=== PATIENT | female | born 1960 | race Caucasian/White ===

== ENCOUNTER 2021-08-27 13:08 | Emergency (ER) | payer SELFPAY ==
--- NOTE | 2021-08-27 13:22 | EDM.PDOC ---
"ED HPI GENERAL MEDICAL PROBLEM - General Chief Complaint: Respiratory Problem Stated Complaint: SHAQ BREATHE [id number] Time Seen by Provider: 08/27/21 13:22 Source of Information: Reports: Patient, RN, RN Notes Reviewed History Limitations: Reports: No Limitations - History of Present Illness INITIAL COMMENTS - FREE TEXT/NARRATIVE: Pt sent from clinic by PCP for evaluation of shortness of breath, chest pressure, and weight gain. Pt admits to cough with occasional sputum production. She recently had swelling in the ankles, but that has resolved. She has Hx of chronic A-fib, COPD and continues to smoke. Pt had a negative COVID swab in clinic today. Denies fever, leg/calf pain, orthopnea, or hemoptysis. Patient due for CT scan of right hip, she is scheduled for hip replacement on 09/16/21. Onset: Gradual Duration: Week(s): (1-2) Location: Reports: Chest, Generalized Quality: Reports: Pressure Severity: Mild Improves with: Reports: None Worsens with: Reports: None Associated Symptoms: Reports: No Other Symptoms right hip Pain Score (Numeric/FACES): 2 - Related Data Allergies Allergy/AdvReac Type Severity Reaction Status Date / Time grapefruit Allergy Hives Verified 08/27/21 14:54 Home Meds: Home Meds Acetaminophen [Tylenol Extra Strength] 1,000 mg PO Q6H PRN 08/27/21 [History] Albuterol [Proventil HFA] 2 puff INH Q6H PRN 08/27/21 [History] Apixaban [Eliquis] 5 mg PO BID 08/27/21 [History] Calcium Carbonate/Vitamin D3 [Calcium 1,000 + D3 Caplet] 3 each PO DAILY 08/27/21 [History] Fluticasone/Salmeterol [Advair 250-50] 1 puff INH BID 08/27/21 [History] Gabapentin [Neurontin] 100 mg PO BID 08/27/21 [History] Tiotropium [Spiriva] 18 mcg INH DAILY 08/27/21 [History] Past Medical History Cardiovascular History: Reports: Afib Respiratory History: Reports: COPD Social & Family History - Family History Family Medical History: No Pertinent Family History - Tobacco Use Tobacco Use Status *Q: Current Every Day Tobacco User Tobacco Use Within Last Twelve Months: Cigarettes Years of Tobacco use: 40 - Living Situation & Occupation Living situation: Reports: , Alone ED ROS GENERAL - Review of Systems Review Of Systems: Comprehensive ROS is negative, except as noted in HPI. ED EXAM, GENERAL - Physical Exam Exam: See Below Exam Limited By: No Limitations General Appearance: Alert, No Apparent Distress, Thin, Other (Chronically ill appearing) Eye Exam: Bilateral Eye: Normal Inspection Nose: Normal Inspection, No Blood Throat/Mouth: Normal Lips, Normal Voice, No Airway Compromise Head: Atraumatic, Normocephalic Neck: Normal Inspection Respiratory/Chest: No Respiratory Distress, No Accessory Muscle Use, Decreased Breath Sounds, Crackles, Wheezing (mild). No: Rales, Rhonchi Cardiovascular: No JVD, Tachycardia, Irregularly Irregular GI/Abdominal: Normal Bowel Sounds, Soft, Non-Tender Back Exam: Normal Inspection Extremities: Normal Inspection Neurological: Alert, Oriented, CN II-XII Intact, Normal Cognition, No Motor/Sensory Deficits Psychiatric: Normal Affect, Normal Mood Skin Exam: Warm, Dry, Intact, Normal Color, No Rash #1 Interpretation EKG Date: 08/27/21 Time: 14:32 Rhythm: A-Fib Rate (Beats/Min): 98 [place]: Normal P-Wave: Present QRS: Other (borderline low voltage, extremity leads. Anteroseptal infarct, age indeterminate.) ST-T: Normal QT: Normal Comparison: NA - No Prior EKG Course - Vital Signs Last Recorded V/S: Last Vital Signs Temp 99.1 F 08/27/21 13:49 Pulse 100 08/27/21 14:08 Resp 20 08/27/21 13:49 BP 125/85 08/27/21 13:49 Pulse Ox 93 L 08/27/21 14:08 - Orders/Labs/Meds Orders: Active Orders 24 hr Category Date Time Status CULTURE BLOOD [BC] Stat Lab 08/27/21 14:18 Received CULTURE BLOOD [BC] Stat Lab 08/27/21 14:30 Received Diltiazem 125 mg Med 08/27/21 14:15 Active Sodium Chloride 0.9% [Normal Saline] 100 ml IV TITRATE Sodium Chloride 0.9% [Saline Flush] Med 08/27/21 14:07 Active 10 ml FLUSH ASDIRECTED PRN Blood Culture x2 Reflex Set [OM.PC] Stat Oth 08/27/21 14:07 Ordered Peripheral IV Insertion Adult [OM.PC] Stat Oth 08/27/21 14:07 Ordered Medication Orders Diltiazem HCl 125 mg/ Sodium (Chloride) 125 mls @ 5 mls/hr IV TITRATE JAIDEN; Protocol Sodium Chloride (Sodium Chloride 0.9% 10 Ml Syringe) 10 ml FLUSH ASDIRECTED PRN PRN Reason: Keep Vein Open Last Admin: 08/27/21 14:56 Dose: 10 ml Documented by: MIKA Labs: Laboratory Tests 08/27/21 08/27/21 08/27/21 Range/Units 14:18 14:18 14:18 WBC 3.6 L (5.0-10.0) 10^3/uL RBC 4.76 (4.2-5.4) 10^6/uL Hgb 15.3 (12.0-16.0) g/dL Hct 43.9 (37.0-47.0) % MCV 92.2 (80-100) fL MCH 32.1 (27.0-34.0) pg MCHC 34.9 (33.0-35.0) g/dL Plt Count 139 L (150-450) 10^3/uL Neut % (Auto) 73.8 (42.2-75.2) % Lymph % (Auto) 19.5 L (20.5-50.1) % [place] % (Auto) 5.3 (2-8) % Eos % (Auto) 0.6 L (1.0-3.0) % Baso % (Auto) 0.8 (0.0-1.0) % Sodium 132 L (136-145) mmol/L Potassium 3.9 (3.5-5.1) mmol/L Chloride 92 L (98-107) mmol/L Carbon Dioxide 28 (21-32) mmol/L Anion Gap 15.9 H (7-13) mEq/L BUN 13 (7-18) mg/dL Creatinine 0.97 (0.55-1.02) mg/dL Est Cr Clr Drug Dosing 58.46 mL/min Estimated GFR (MDRD) 59 BUN/Creatinine Ratio 13.4 (No establ ref range) Glucose 149 H (70-99) mg/dL Lactic Acid 2.2 H* (0.4-2.0) mmol/L Calcium 9.2 (8.5-10.1) mg/dL Magnesium 2.1 (1.8-2.4) mg/dL Total Bilirubin 1.7 H (0.2-1.0) mg/dL AST 29 (15-37) U/L ALT 26 (14-59) U/L Alkaline Phosphatase 173 H (46-116) U/L Troponin I High Sens 11 (<=51) pg/mL B-Natriuretic Peptide 448 H (0-100) pg/ml Total Protein 7.8 (6.4-8.2) g/dL Albumin 3.9 (3.4-5.0) g/dL Globulin 3.9 Albumin/Globulin Ratio 1.0 TSH, Ultra Sensitive 1.52 (0.36-3.74) uIU/mL Meds: Medications Generic Name Dose Route Start Last Admin Trade Name Freq PRN Reason Stop Dose Admin Diltiazem HCl 125 mg/ Sodium 125 mls @ 5 mls/hr 08/27/21 14:15 Chloride IV TITRATE JAIDEN Protocol 5 MG/HR Sodium Chloride 10 ml 08/27/21 14:07 08/27/21 14:56 Sodium Chloride 0.9% 10 Ml Syringe FLUSH 10 ml ASDIRECTED PRN Administration Keep Vein Open Discontinued Medications Generic Name Dose Route Start Last Admin Trade Name Freq PRN Reason Stop Dose Admin Albuterol/Ipratropium 3 ml 08/27/21 14:08 08/27/21 14:47 Albuterol/Ipratropium 3.0-0.5 Mg/3 Ml Neb Soln NEB 08/27/21 14:09 3 ml ONETIME ONE Administration Diltiazem HCl 20 mg 08/27/21 14:08 08/27/21 14:56 Diltiazem 25 Mg/5 Ml Sdv IVPUSH 08/27/21 14:09 Not Given ONETIME ONE Methylprednisolone Sodium Succinate 125 mg 08/27/21 14:08 08/27/21 14:56 Methylprednisolone Sodium Succinate 125 Mg/2 Ml Sdv IVPUSH 08/27/21 14:09 125 mg ONETIME ONE Administration - Radiology Interpretation Free Text/Narrative:: [facility] Final Radiology Report Call: [phone] assistance Online chat: [email or web address] Name: BERTHA RUSSELL Age: 60Years F Date: 08/27/2021 SSN: -- : [id number] Study: CT CHEST WO CONT Requesting Physician: JASBIR WANG Images: [id number] Addl Studies: Provided Clinical History: COPD, dyspnea/cough, COVID neg., edema Contrast: Without Contrast Medium: Contrast Amount: Contrast Method: Page 1 of 2 PROCEDURE INFORMATION: Exam: CT Chest Without Contrast; Diagnostic Exam date and time: 08/27/2021 2:42 PM Age: 60 years old Clinical indication: Cough and dyspnea; Additional info: Copd, dyspnea/cough, covid neg. , Edema TECHNIQUE: Imaging protocol: Diagnostic computed tomography of the chest without contrast. Radiation optimization: All CT scans at this facility use at least one of these dose optimization techniques: automated exposure control; mA and/or kV adjustment per patient size (includes targeted exams where dose is matched to clinical indication); or iterative reconstruction. COMPARISON: No relevant prior exams. FINDINGS: Lungs: Mild emphysematous changes are present. Spotty areas of interstitial infiltrate in the anterior right upper lobe and posterior right lower lobe. Minimal stranding in the lateral right upper lobe. No other pulmonary infiltrate or consolidation. Subsolid 3 mm nodule in the posterolateral right lower lobe at 2-43. 4 mm nodule in the slightly more posterior right lower lobe at the same level. Pleural spaces: Unremarkable. No pneumothorax. No pleural effusion. Heart: Mild diffuse cardiac enlargement. Aorta: Unremarkable. No aortic aneurysm. Lymph nodes: Unremarkable. No enlarged lymph nodes. Bones/joints: Unremarkable. No acute fracture. Soft tissues: Unremarkable. Other findings: Fluid in the upper abdomen. IMPRESSION: BERTHA RUSSELL | Final Radiology Report CONFIDENTIALITY STATEMENT This report is intended only for use by the referring physician, and only in accordance with law. If you received this in error, call [phone]. Page 2 of 2 1. Small spotty areas of interstitial change may be acute or chronic. This may represent fibrosis related to the emphysema. An acute pneumonia is difficult to fully exclude. 2. Small subsolid nodules. Recommend CT Chest at 3-6 months. If stable, then consider CT Chest at 2 years and 4 years. (Reference: Denny) 3. Emphysema. REFERENCES: Denny Lopez, et al. Guidelines for Management of Incidental Pulmonary Nodules Detected on CT Images: From the Fleischner Society 2017. Radiology. 2017;284(1):228-243. Thank you for allowing us to participate in the care of your patient. Dictated and Authenticated by: Dante Mcclain MD 08/27/2021 3:05 PM Central Time ([place] & [place]) Departure - Departure Time of Disposition: 15:43 Disposition: Home, Self-Care 01 Condition: Fair Clinical Impression: Acute exacerbation of chronic obstructive pulmonary disease, Chronic atrial fibrillation with rapid ventricular response - Discharge Information *PRESCRIPTION DRUG MONITORING PROGRAM REVIEWED*: Not Applicable *COPY OF PRESCRIPTION DRUG MONITORING REPORT IN PATIENT JUANITA: Not Applicable Instructions: Chronic Obstructive Pulmonary Disease Exacerbation, Atrial Fibrillation Forms: ED Department Discharge Additional Instructions: Rx: Prednisone 20mg Rx: Levaquin 500mg Rx: Cardizem (Diltiazem) CD 120mg Continue your other medications and inhalers as prescribed. Quit smoking. Follow up in clinic with your primary doctor as scheduled. Have your doctor recheck your heart rate, and review the CT report from today's lung scan at your appointment. Sepsis Event Note (ED) - Focused Exam Vital Signs: Vital Signs Temp Pulse Resp BP Pulse Ox Pulse Ox 08/27/21 14:08 100 93 L 08/27/21 13:49 99.1 F 127 H 20 125/85 96 - My Orders Last 24 Hours: My Active Orders 08/27/21 14:07 Sodium Chloride 0.9% [Saline Flush] 10 ml FLUSH ASDIRECTED PRN Blood Culture x2 Reflex Set [OM.PC] Stat Peripheral IV Insertion Adult [OM.PC] Stat 08/27/21 14:15 Diltiazem 125 mg Sodium Chloride 0.9% [Normal Saline] 100 ml IV TITRATE 08/27/21 14:18 CULTURE BLOOD [BC] Stat 08/27/21 14:30 CULTURE BLOOD [BC] Stat - Assessment/Plan Last 24 Hours: My Active Orders 08/27/21 14:07 Sodium Chloride 0.9% [Saline Flush] 10 ml FLUSH ASDIRECTED PRN Blood Culture x2 Reflex Set [OM.PC] Stat Peripheral IV Insertion Adult [OM.PC] Stat 08/27/21 14:15 Diltiazem 125 mg Sodium Chloride 0.9% [Normal Saline] 100 ml IV TITRATE 08/27/21 14:18 CULTURE BLOOD [BC] Stat 08/27/21 14:30 CULTURE BLOOD [BC] Stat"
[2021-08-27] MEDS ORDERED: Sodium Chloride 0.9% 10 ML Syringe FLUSH PRN (14:07)
[2021-08-27] MEDS ORDERED: Diltiazem 25 MG/5 ML SDV IVPUSH ONE (14:08)
[2021-08-27] MEDS ORDERED: Albuterol/Ipratropium 3.0-0.5 MG/3 ML Neb Soln NEB ONE (14:08)
[2021-08-27] MEDS ORDERED: methylPREDNISolone Sodium Succinate 125 MG/2 ML SDV IVPUSH ONE (14:08)
[2021-08-27] MEDS ORDERED: Diltiazem 125 MG in Sodium Chloride 0.9% 100 ML IV SCH (14:15)
[2021-08-27 14:52] LABS: ANION GAP 15.9 mEq/L (7-13)
--- NOTE | 2021-08-27 15:06 | CT ---
PROCEDURE INFORMATION: Exam: CT Chest Without Contrast; Diagnostic Exam date and time: 08/27/2021 2:42 PM Age: 60 years old Clinical indication: Cough and dyspnea; Additional info: Copd, dyspnea/cough, covid neg. , Edema TECHNIQUE: Imaging protocol: Diagnostic computed tomography of the chest without contrast. Radiation optimization: All CT scans at this facility use at least one of these dose optimization techniques: automated exposure control; mA and/or kV adjustment per patient size (includes targeted exams where dose is matched to clinical indication); or iterative reconstruction. COMPARISON: No relevant prior exams. FINDINGS: Lungs: Mild emphysematous changes are present. Spotty areas of interstitial infiltrate in the anterior right upper lobe and posterior right lower lobe. Minimal stranding in the lateral right upper lobe. No other pulmonary infiltrate or consolidation. Subsolid 3 mm nodule in the posterolateral right lower lobe at 2-43. 4 mm nodule in the slightly more posterior right lower lobe at the same level. Pleural spaces: Unremarkable. No pneumothorax. No pleural effusion. Heart: Mild diffuse cardiac enlargement. Aorta: Unremarkable. No aortic aneurysm. Lymph nodes: Unremarkable. No enlarged lymph nodes. Bones/joints: Unremarkable. No acute fracture. Soft tissues: Unremarkable. Other findings: Fluid in the upper abdomen. IMPRESSION: 1. Small spotty areas of interstitial change may be acute or chronic. This may represent fibrosis related to the emphysema. An acute pneumonia is difficult to fully exclude. 2. Small subsolid nodules. Recommend CT Chest at 3-6 months. If stable, then consider CT Chest at 2 years and 4 years. (Reference: Denny) 3. Emphysema. REFERENCES: Denny H, et al. Guidelines for Management of Incidental Pulmonary Nodules Detected on CT Images: From the Fleischner Society 2017. Radiology. 2017;284(1):228-243.
== END 2021-08-27 16:05 | disposition home or self-care (01) ==
LOC: DL.ED 13:08
DX: J44.1 Chronic obstructive pulmonary disease with (acute) exacerbation (principal); I48.20 Chronic atrial fibrillation, unspecified; Z72.0 Tobacco use; Z91.018 Allergy to other foods; Z79.01 Long term (current) use of anticoagulants
CPT/HCPCS: 36415; 71250; 80053; 83605; 83735; 83880; 84443; 84484; 85025; 87040; 93005; 94640; 96374; 99285-25; J2930; J7620-GY